=== PATIENT | male | born 1935 | race Caucasian/White ===

== ENCOUNTER → 2016-08-29 | Outpatient (CLI) | payer OTHER | LOC: BHFA 11:30 | PROVIDERS: ATTEND Internal Medicine Cardiovascular Disease | DX: I48.92 Unspecified atrial flutter (principal); I48.91 Unspecified atrial fibrillation ==

== ENCOUNTER 2016-08-30 07:09 | Day surgery (SDC) | payer OTHER ==
[2016-08-30] MEDS ORDERED: PROPOFOL 200 MG/20 ML VIAL IVP ONE (07:12)
[2016-08-30] MEDS ORDERED: NS 500 ML IV ONE (07:12)
[2016-08-30] MEDS ORDERED: fentaNYL 100 MCG/2 ML INJ IVP ONE (07:12)
[2016-08-30] MEDS ORDERED: MIDAZOLAM 2 MG/2 ML VIAL IVP ONE (07:12)
--- NOTE | 2016-08-30 07:34 | CPEKG ---
Heart Rate: 119 RR Interval: 504 P-R Interval: 164 QRSD Interval: 108 QT Interval: 372 QTC Interval: 524 P [place]: 0 QRS [place]: 73 T Wave [place]: 70 EKG Severity - ABNORMAL ECG - EKG Impression: PROBABLE ATRIAL FLUTTER EKG Impression: INCOMPLETE RIGHT BUNDLE BRANCH BLOCK EKG Impression: PROLONGED QT INTERVAL Electronically Signed By: Cuba Santos 30-Aug-2016 19:27:44
[2016-08-30 07:59] LABS: INR 2.55 (0.83-1.16); PROTIME(PATIENT) 27.7 SEC (12.0-15.0)
[2016-08-30 08:00] LABS: APTT 34.9 SEC (23.0-38.0)
[2016-08-30 08:11] LABS: ANION GAP 11 mEq/L (8-16); CALCIUM 8.7 mg/dL (8.5-10.4); CARBON DIOXIDE 25 mEq/l (22-31); CHLORIDE 101 mEq/L (97-110); CREATININE 0.9 mg/dL (0.7-1.3); GLOMERULAR FILTRATION RATE > 60; GLUCOSE 89 mg/dL (70-100); MAGNESIUM 1.9 mg/dL (1.6-2.3); POTASSIUM 4.3 mEq/L (3.5-5.2); SODIUM 137 mEq/L (134-144)
--- NOTE | 2016-08-30 08:31 | CPEKG ---
Heart Rate: 81 RR Interval: 741 P-R Interval: 164 QRSD Interval: 94 QT Interval: 392 QTC Interval: 455 P [place]: 78 QRS [place]: 54 T Wave [place]: 68 EKG Severity - NORMAL ECG - EKG Impression: SINUS RHYTHM Electronically Signed By: Cuba Santos 30-Aug-2016 19:28:07
--- NOTE | 2016-08-30 16:04 | EPPROC ---
Electrophysiology Procedure Note: Procedure: CV Indication: Symptomatic Atrial flutter from the LA Procedure: Pt sedated by anesthesia staff. Once sedated, pt underwent 200J of DCCV. Pt converted to sinus rhythm. Conclusion: Successful CV Patient Problems: Problems Problem Status Diagnosed A-fib Acute Chronic Disease Mgmt/Transitional Care Acute Febrile Acute Groin hematoma Acute Pneumonia Acute
== END 2016-08-30 09:49 | disposition home or self-care (01) ==
LOC: FCATH 07:09
PROVIDERS: ATTEND Internal Medicine Cardiovascular Disease
PROC: 5A2204Z Restoration of Cardiac Rhythm, Single (ICD-10-PCS; principal; 2016-08-30)
DX: I48.91 Unspecified atrial fibrillation (principal); I48.92 Unspecified atrial flutter; I10 Essential (primary) hypertension; E03.9 Hypothyroidism, unspecified; E78.00 Pure hypercholesterolemia, unspecified; Z95.1 Presence of aortocoronary bypass graft
CPT/HCPCS: J2704

== ENCOUNTER 2017-01-29 08:34 | Emergency (ER) | payer OTHER ==
[2017-01-29 08:44] VITALS: RESP 16
[2017-01-29] MEDS ORDERED: NS 1,000 ML IV ONE (09:11)
--- NOTE | 2017-01-29 09:14 | EDPHY ---
H & P Stated Complaint: near syncopal episode, Cardiac hx at dinner. asymptomatic today Time Seen by Provider: 01/29/17 09:02 HPI/ROS: CHIEF COMPLAINT: Pre syncope HISTORY OF PRESENT ILLNESS: The patient is a 81-year-old man with a history of 5 vessel bypass in 1965. He has not had any further interventions needed since that time after he became a Vegan. He does have a history of atrial fibrillation as well status post ablation 1 year ago on Coumadin. No pacemaker. He is currently asymptomatic but states that last night while eating dinner with friends he had a 3 second episode of presyncope. He states that while sitting down he suddenly felt faint and like his vision was closing in and that he had tingling in both of his hands. His symptoms resolved abruptly. He denies chest pain or palpitations or shortness of breath associated with episode. No seizure-like activity. No focal weakness or deficits or speech difficulty. REVIEW OF SYSTEMS: Constitutional: denies: chills, fever, recent illness, recent injury EENTM: denies: blurred vision, double vision, nose congestion Respiratory: denies: cough, shortness of breath Cardiac: See HPI Gastrointestinal/Abdominal: denies: abdominal pain, diarrhea, nausea, vomiting, blood streaked stools Genitourinary: denies: dysuria, frequency, hematuria, pain Musculoskeletal: denies: joint pain, muscle pain Skin: denies: lesions, rash, jaundice, bruising Neurological: denies: headache, numbness, paresthesia, tingling, dizziness, weakness Hematologic/Lymphatic: denies: blood clots, easy bleeding, easy bruising Immunologic/allergic: denies: HIV/AIDS, transplant EXAM: GENERAL: Well-appearing, well-nourished and in no acute distress. HEAD: Atraumatic, normocephalic. EYES: Pupils equal round and reactive to light, extraocular movements intact, sclera anicteric, conjunctiva are normal. ENT: TMs normal, nares patent, oropharynx clear without exudates. Moist mucous membranes. NECK: Normal range of motion, supple without lymphadenopathy or JVD. LUNGS: Breath sounds clear to auscultation bilaterally and equal. No wheezes rales or rhonchi. HEART: Regular rate and rhythm without murmurs, rubs or gallops. ABDOMEN: Soft, nontender, normoactive bowel sounds. No guarding, no rebound. No masses appreciated. BACK: No CVA tenderness, no spinal tenderness, step-offs or deformities EXTREMITIES: Normal range of motion, no pitting or edema. No clubbing or cyanosis. NEUROLOGICAL: Cranial nerves II through XII grossly intact. Normal speech, normal gait. 5/5 strength, normal movement in all extremities, normal sensation PSYCH: Normal mood, normal affect. SKIN: Warm, dry, normal turgor, no visible rashes or lesions. Source: Patient Exam Limitations: No limitations - Personal History Current Tetanus/Diphtheria Vaccine: Yes Current Tetanus Diphtheria and Acellular Pertussis (TDAP): Yes - Medical/Surgical History Hx Asthma: No Hx Chronic Respiratory Disease: No Hx Diabetes: No Hx Cardiac Disease: Yes Hx Renal Disease: No Hx Cirrhosis: No Hx Alcoholism: No Hx HIV/AIDS: No Hx Splenectomy or Spleen Trauma: No Other PMH: CABG x 4, Afib with ablation - Family History Significant Family History: No pertinent family hx - Social History Smoking Status: Never smoked Alcohol Use: Sober Drug Use: None Constitutional: Initial Vital Signs Temperature (C) 36.9 C 01/29/17 08:41 Heart Rate 62 01/29/17 08:41 Respiratory Rate 16 01/29/17 08:41 Blood Pressure 179/84 H 01/29/17 08:41 O2 Sat (%) 97 01/29/17 08:41 O2 Delivery Mode Room Air Allergies/Adverse Reactions: iodine Allergy (Verified 03/05/16 03:58) Penicillins Allergy (Verified 03/05/16 03:58) IV contrast dye Allergy (Uncoded 03/05/16 03:58) Home Medications: Medication Instructions Recorded Levothyroxine [Synthroid 50 mcg 50 mcg PO DAILY 01/19/14 (*)] Warfarin Sodium [Jantoven] 6 mg PO DAILY@1900 01/19/14 Metoprolol Tartrate [Lopressor 25 25 mg PO DAILY 05/03/14 mg (*)] Cholecalciferol Vit D3 [Vitamin D3 500 units PO DAILY 02/29/16 (*)] Cyanocobalamin [Vitamin B12 (*)] 1,000 mcg PO DAILY 02/29/16 ASPIRIN 81 mg PO DAILY 08/30/16 Saw [place] 160 mg PO DAILY 08/30/16 Medical Decision Making - Diagnostics EKG Interpretation: An EKG obtained and was read and documented in trace view. Please see trace view for full reading and report. Sinus rhythm, no acute ischemic changes A repeat EKG obtained and was read and documented in trace view. Please see trace view for full reading and report. Sinus rhythm with premature supraventricular beats displaying bigeminy ED Course/Re-evaluation: 10:15 a.m. the patient remains asymptomatic. His lab work is reassuring. His EKG is reassuring. He declines further workup or testing and is eager to go home. He will follow up with his genomics scientist Dr. Parmar for further testing. We discussed indications for returning to the emergency department. 10:30 a.m. on repeat EKG the patient this shown to have several supraventricular beats in a bigeminy pattern. He is otherwise asymptomatic. I have paged Cardiology group and will have him follow up in the clinic. 10:44 a.m. I spoke with Chiqui at [facility]. They will call the patient to set him up with a monitor. Differential Diagnosis: Partial list of the Differential diagnosis considered include but were not limited to; arrhythmia, dehydration, acute coronary disease and although unlikely based on the history and physical exam, I also considered seizure, TIA , infection. I discussed these differential diagnoses and the plan with the patient as well as the usual and expected course. The patient understands that the diagnosis is provisional and that in medicine we are not always correct and that further workup is often warranted. Usual and customary warnings were given. All of the patient's questions were answered. The patient was instructed to return to the emergency department should the symptoms at all worsen or return, otherwise to followup with the physician as we discussed. - Data Points Laboratory Results: Laboratory Results 01/29/17 09:25 01/29/17 09:25 Medications Given: Discontinued Medications Sodium Chloride (Ns) 1,000 mls @ 0 mls/hr IV ONCE ONE; Wide Open PRN Reason: Protocol Stop: 01/29/17 09:12 Last Admin: 01/29/17 09:27 Dose: 1,000 mls Departure - Departure Disposition: Home, Routine, Self-Care Clinical Impression: Pre-syncope Condition: Fair Instructions: Near Syncope (ED) Referrals: Ede Sheikh MD [Primary Care Provider] - As per Instructions Johnnie Parmar MD [Medical Doctor] - As per Instructions
[2017-01-29 09:32] LABS: % IMMATURE GRANULYOCYTES 0.3 % (0.0-1.1); ABSOLUTE IMMATURE GRANULOCYTES 0.02 10^3/uL (0.00-0.10); ADD DIFF? NO; ADD MORPH? NO; ADD SCAN? NO; ATYPICAL LYMPHOCYTE FLAG 30 (0-99); FRAGMENT RBC FLAG 0 (0-99); HEMATOCRIT 39.8 % (40.0-51.0); HEMOGLOBIN 13.4 g/dL (13.7-17.5); LEFT SHIFT FLG 10 (0-99); LIPEMIA HEMOLYSIS FLAG 80 (0-99); MEAN CELL HEMOGLOBIN 32.6 pg (27.9-34.1); MEAN CELL HEMOGLOBIN CONCENTR. 33.7 g/dL (32.4-36.7); MEAN CELL VOLUME 96.8 fL (81.5-99.8); MEAN PLATELET VOLUME 10.1 fL (8.7-11.7); PLATELET CLUMPS FLAG 0 (0-99); PLATELET COUNT 200 10^3/uL (150-400); RED BLOOD CELL COUNT 4.11 10^6/uL (4.40-6.38); RED CELL DISTRIBUTION WIDTH 12.1 % (11.5-15.2)
[2017-01-29 09:43] LABS: ANION GAP 8 mEq/L (8-16); CARBON DIOXIDE 27 mEq/l (22-31); CHLORIDE 101 mEq/L (97-110); GLOMERULAR FILTRATION RATE > 60; GLUCOSE 70 mg/dL (70-100); POTASSIUM 4.4 mEq/L (3.5-5.2); SODIUM 136 mEq/L (134-144)
[2017-01-29 09:54] LABS: INR 2.94 (0.83-1.16)
[2017-01-29 09:55] LABS: APTT 33.8 SEC (23.0-38.0); TROPONIN I < 0.012 ng/mL (0-0.034)
--- NOTE | 2017-01-29 10:23 | CPEKG ---
Heart Rate: 51 RR Interval: 1176 P-R Interval: 176 QRSD Interval: 92 QT Interval: 424 QTC Interval: 391 P [place]: 56 QRS [place]: 66 T Wave [place]: 78 EKG Severity - ABNORMAL ECG - EKG Impression: SINUS RHYTHM EKG Impression: SUPRAVENTRICULAR BIGEMINY Electronically Signed By: Fritz Schumacher 29-Jan-2017 10:28:30
[2017-01-29 10:54] VITALS: O2SAT 98
[2017-01-29 10:56] VITALS: BP 160/72; PULSE 62; TEMP 97.9
== END 2017-01-29 10:56 | disposition home or self-care (01) ==
DX: R55 Syncope and collapse (principal); E86.9 Volume depletion, unspecified; Z79.01 Long term (current) use of anticoagulants; Z79.82 Long term (current) use of aspirin; Z95.1 Presence of aortocoronary bypass graft

== ENCOUNTER → 2017-01-31 | Outpatient (CLI) | payer OTHER | LOC: BHFA 13:30 | PROVIDERS: ATTEND Internal Medicine Interventional Cardiology | DX: R55 Syncope and collapse (principal) ==

== ENCOUNTER → 2017-03-25 | Outpatient (CLI) | payer OTHER | LOC: BHFA 09:15 | PROVIDERS: ATTEND Internal Medicine Cardiovascular Disease | DX: I25.10 Atherosclerotic heart disease of native coronary artery without angina pectoris (principal); R55 Syncope and collapse ==

== ENCOUNTER → 2017-07-12 | Outpatient (CLI) | payer OTHER | LOC: FIMAGING 13:38 | PROVIDERS: ATTEND Internal Medicine | DX: R91.1 Solitary pulmonary nodule (principal) ==

== ENCOUNTER 2017-07-24 11:03 | Day surgery (SDC) | payer OTHER ==
[2017-07-24] MEDS ORDERED: fentaNYL 100 MCG/2 ML INJ IVP ONE (11:09)
[2017-07-24] MEDS ORDERED: MIDAZOLAM 2 MG/2 ML VIAL IVP ONE (11:09)
[2017-07-24] MEDS ORDERED: NS 500 ML IV ONE (11:09)
[2017-07-24] MEDS ORDERED: ATROPINE SULFATE 1 MG/10 ML SYR IVP ONE (11:09)
--- NOTE | 2017-07-24 11:22 | CPEKG ---
Heart Rate: 116 RR Interval: 517 P-R Interval: 74 QRSD Interval: 90 QT Interval: 388 QTC Interval: 540 P [place]: 0 QRS [place]: 88 T Wave [place]: 83 EKG Severity - ABNORMAL ECG - EKG Impression: LIKELY ATRIAL TACHYCARDIA EKG Impression: BORDERLINE RIGHT AXIS DEVIATION EKG Impression: BORDERLINE ST DEPRESSION, DIFFUSE LEADS EKG Impression: PROLONGED QT INTERVAL EKG Impression: COMPARED WITH 01/29/2017, ATRIAL TACHYCARDIA NOW PRESENT. PROLONGED QT INTERVAL EKG Impression: NOW PRESENT. Electronically Signed By: Aida Bess 24-Jul-2017 15:42:37
[2017-07-24 11:45] LABS: INR 1.77 (0.83-1.16); PROTIME(PATIENT) 20.7 SEC (12.0-15.0)
[2017-07-24 11:46] LABS: APTT 31.6 SEC (23.0-38.0)
[2017-07-24 11:50] LABS: ANION GAP 11 mEq/L (8-16); CALCIUM 8.9 mg/dL (8.5-10.4); CARBON DIOXIDE 25 mEq/l (22-31); CHLORIDE 102 mEq/L (97-110); CREATININE 0.9 mg/dL (0.7-1.3); GLOMERULAR FILTRATION RATE > 60; GLUCOSE 87 mg/dL (70-100); MAGNESIUM 1.9 mg/dL (1.6-2.3); POTASSIUM 4.5 mEq/L (3.5-5.2); SODIUM 138 mEq/L (134-144)
--- NOTE | 2017-07-24 12:13 | PDANEPAE ---
ANE History of Present Illness a flutter ANE Past Medical History - Cardiovascular History Hx Coronary Artery / Peripheral Vascular Disease: Yes - Pulmonary History Hx Oxygen in Use at Home: No Hx Sleep Apnea: No - Endocrine History Hx Diabetes: No - Chronic Pain History Chronic Pain: No ANE Review of Systems Review of Systems: ANE Patient History - Allergies Allergies/Adverse Reactions: iodine Allergy (Verified 03/05/16 03:58) Penicillins Allergy (Verified 03/05/16 03:58) IV contrast dye Allergy (Uncoded 03/05/16 03:58) - Home Medications Home Medications: Levothyroxine [Synthroid 50 mcg (*)] 50 mcg PO DAILY 01/19/14 [Last Taken ] Warfarin Sodium [Jantoven] 6 mg PO DAILY@1900 01/19/14 [Last Taken 07/23/17] Metoprolol Tartrate [Lopressor 25 mg (*)] 25 mg PO BID 05/03/14 [Last Taken ] Cholecalciferol Vit D3 [Vitamin D3 (*)] 500 units PO DAILY 02/29/16 [Last Taken 07/23/17] Cyanocobalamin [Vitamin B12 (*)] 500 mcg PO DAILY 02/29/16 [Last Taken 07/23/17] ASPIRIN 81 mg PO DAILY 08/30/16 [Last Taken 07/24/17] Saw [place] 160 mg PO DAILY 08/30/16 [Last Taken 07/23/17] Lipitor 10 mg (*) 5 mg PO DAILY 07/24/17 [Last Taken 07/23/17] - Smoking Hx Smoking Status: Never smoked ANE Labs/Vital Signs - Labs Result Diagrams: 07/24/17 11:28 - Vital Signs Height: 178 cm Weight: 65.3 kg ANE Physical Exam - Airway Neck exam: FROM Mallampati Score: Class 2 Mouth exam: normal dental/mouth exam - Pulmonary Pulmonary: no respiratory distress - Cardiovascular Cardiovascular: regular rate and rhythym - ASA Status ASA Status: III ANE Anesthesia Plan Total IV Anesthesia: Yes
[2017-07-24] MEDS ORDERED: PROPOFOL 200 MG/20 ML VIAL ONE ×2 (12:14→12:29)
--- NOTE | 2017-07-24 12:20 | PDHPUP ---
History & Physical Update H&P update statement: This history and physical update is based on an assessment of the patient which was completed after admission or registration (within 24 hours), but prior to the surgery/procedure. H&P update: H&P reviewed & patient examined, no change in patient's condition since H&P completed
--- NOTE | 2017-07-24 12:36 | EPPROC ---
Electrophysiology Procedure Note: Procedure: CV Indication: Symptomatic atrial flutter Procedure: SHANE performed under GA. LA closure performed previously. No LA clot. Synchronized DCCV performed with 200J. Pt successfuly converted to SR. Conclusion: Successful CV Patient Problems: Problems Problem Status Onset A-fib Acute Chronic Disease Mgmt/Transitional Care Acute Febrile Acute Groin hematoma Acute Pneumonia Acute
--- NOTE | 2017-07-24 12:38 | CPEKG ---
Heart Rate: 73 RR Interval: 822 P-R Interval: 172 QRSD Interval: 96 QT Interval: 404 QTC Interval: 446 P [place]: 82 QRS [place]: 56 T Wave [place]: 58 EKG Severity - NORMAL ECG - EKG Impression: SINUS RHYTHM EKG Impression: COMPARED WITH 07/24/2017 AT 11:20 A.M., SINUS RHYTHM IS NOW PRESENT. QT SHORTER Electronically Signed By: Aida Bess 24-Jul-2017 15:41:27
--- NOTE | 2017-07-24 13:31 | POSTANESTH ---
Post Anesthetic Evaluation Cardiovascular Status: Normal, Stable Respiratory Status: Normal, Stable Level of Consciousness/Mental Status: Can Participate in Eval Pain Control: Adequate, Prn Tx Ordered Nausea/Vomiting Control: Adequate, Prn Tx Ordered Complications Possibly Related to Anesthesia: None Noted
== END 2017-07-24 13:50 | disposition home or self-care (01) ==
LOC: FCATH 11:03
PROVIDERS: ATTEND Internal Medicine Cardiovascular Disease
DX: I48.91 Unspecified atrial fibrillation (principal); I48.92 Unspecified atrial flutter; Z79.01 Long term (current) use of anticoagulants
CPT/HCPCS: J0461; J2704

== ENCOUNTER 2017-08-26 18:41 | Emergency (ER) | payer OTHER ==
[2017-08-26 18:47] VITALS: O2SAT 96
[2017-08-26] MEDS ORDERED: LET GEL TOPICAL 1 EA SYR TP ONE (20:11)
[2017-08-26] MEDS ORDERED: OXYMETAZOLINE 30 ML NASAL SPRAY EACHNARE ONE (20:11)
--- NOTE | 2017-08-26 20:22 | EDPHY ---
H & P Smoking Status: Never smoked Time Seen by Provider: 08/26/17 20:02 HPI/ROS: CHIEF COMPLAINT: Epistaxis, warfarin HISTORY OF PRESENT ILLNESS: 82-year-old male history of atrial fibrillation complaining of recurrent epistaxis since 4:00 p.m. today. No dizziness. No digital trauma. No headache. No chest pain. PRIMARY CARE PROVIDER: REVIEW OF SYSTEMS: A ten point review of systems was performed and is negative with the exception of the items mentioned in the HPI PHYSICAL EXAM (Prior to examination, patient consented to physical exam, hands were washed and my usual and customary physical exam procedures followed) 1) GENERAL: Well-developed, well-nourished, alert and oriented. Appears to be in no acute distress. 2) HEAD: Normocephalic 3) HEENT: sclera anicteric. There is an area of active bleeding left Kiesselbach's plexus. No evidence of posterior bleed or right-sided bleeding. 4) LUNGS: Breathing comfortably. (Vanessa Miles) Constitutional: Initial Vital Signs Heart Rate 110 H 08/26/17 18:43 Respiratory Rate 18 08/26/17 18:43 Blood Pressure 159/103 H 08/26/17 18:43 O2 Sat (%) 96 08/26/17 18:43 O2 Delivery Mode Room Air Allergies/Adverse Reactions: iodine Allergy (Verified 08/26/17 18:42) Penicillins Allergy (Verified 08/26/17 18:42) IV contrast dye Allergy (Uncoded 03/05/16 03:58) Home Medications: Medication Instructions Recorded Levothyroxine [Synthroid 50 mcg 50 mcg PO DAILY 01/19/14 (*)] Warfarin Sodium [Jantoven] 6 mg PO DAILY@1900 01/19/14 Metoprolol Tartrate [Lopressor 25 25 mg PO BID 05/03/14 mg (*)] ASPIRIN 81 mg PO DAILY 08/30/16 Lipitor 10 mg (*) 5 mg PO DAILY 07/24/17 MDM/Departure - [facility] Procedures: Procedure: Epistaxis control. Indication: nosebleed not controlled by direct pressure. Risks, benefits, alternatives discussed with patient and consent obtained. The left nares was anesthetized with LAT. The anterior epistaxis was identified. The patient was treated with silver nitrate cautery. Following the procedure the patient was re-examined and the bleeding was well controlled. The patient tolerated the procedure well. The procedure was performed by myself. At discharge the patient's nose is hemostatic. (Vanessa Miles) Medications Given: Discontinued Medications Oxymetazoline HCl (Afrin Nasal [place]) 2 sprays EACHNARE EDNOW ONE Stop: 08/26/17 20:12 Last Admin: 08/26/17 21:54 Dose: 2 sprays Silver Nitrate/Potassium Nitrate (Silver Nitrate Applicator) 1 each TP EDNOW ONE Stop: 08/26/17 21:22 Last Admin: 08/26/17 21:54 Dose: 1 each Tetracaine/Epinephrine/Lidocaine (Let Gel Topical) 1 ea TP EDNOW ONE Stop: 08/26/17 20:12 Last Admin: 08/26/17 21:54 Dose: 1 ea ED Course/Re-evaluation: Patient's INR is elevated recommend he skip his next dose of Coumadin. (Vanessa Miles) The patient was evaluated and managed by the Physician Recreation Engineer.My co- signature indicates that I have reviewed this chart and I agree with the findings and plan of care as documented. I am the secondary supervising physician. (Fabiola Lopez) - Depart Disposition: Home, Routine, Self-Care Clinical Impression: Left-sided epistaxis Condition: Good Instructions: Nosebleed (ED) Additional Instructions: If you develop further episodes of nosebleed, place direct pressure for 20 minutes. If the bleeding continues, seek medical attention. Referrals: Radha Mattson MD [Medical Doctor] - 2-3 days, call for appt.
[2017-08-26 20:31] LABS: PLATELET COUNT 178 10^3/uL (150-400)
[2017-08-26 20:44] LABS: INR 3.31 (0.83-1.16); PROTIME(PATIENT) 33.4 SEC (12.0-15.0)
[2017-08-26] MEDS ORDERED: SILVER NITRATE APPLICATOR 1 APPL TP ONE (21:21)
[2017-08-26 22:09] VITALS: BP 141/96; PULSE 114; RESP 18; TEMP 98.4
== END 2017-08-26 22:09 | disposition home or self-care (01) ==
PROC: 3E09XTZ Introduction of Destructive Agent into Nose, External Approach (ICD-10-PCS; principal; 2017-08-26)
DX: R04.0 Epistaxis (principal); Z79.01 Long term (current) use of anticoagulants; Z79.82 Long term (current) use of aspirin

== ENCOUNTER 2017-08-27 00:47 | Emergency (ER) | payer OTHER ==
[2017-08-27] MEDS ORDERED: SILVER NITRATE APPLICATOR 1 APPL TP ONE (00:59)
--- NOTE | 2017-08-27 01:10 | EDPHY ---
H & P Stated Complaint: nose bleed HPI/ROS: HPI CHIEF COMPLAINT: Epistaxis, seen earlier on Coumadin HISTORY OF PRESENT ILLNESS: Patient 82-year-old male, very pleasant, seen here earlier in the evening for epistaxis. Now presents back from ongoing bleeding. Patient states that he had good hemostasis earlier however shortly after arriving home his nose started bleeding again. Was unable to get the stops return to the emergency room. Upon arrival to the emergency room is hemodynamically stable no acute distress. He has a very light trickle out of the left anterior Nare. Past Medical History:CABG Past Surgical History:CABG Social History: Denies drugs alcohol tobacco Family History: Noncontributory ROS REVIEW OF SYSTEMS: A comprehensive 10 point review of systems is otherwise negative aside from elements mentioned in the history of present illness. Exam Constitutional appears well nontoxic triage nursing summary reviewed, vital signs reviewed, awake/alert. Eyes normal conjunctivae and sclera, EOMI, PERRLA. HENT left [place] anterior aspect shows light trickle of bright red blood no pulsatile lesion visualized, blood is located on the anterior left Nare the bottom aspect. Right Nare clean moist mucus membranes, no epistaxis, neck supple/ no meningismus, no raccoon eyes. Respiratory clear to auscultation bilaterally, normal breath sounds, no respiratory distress, no wheezing. Cardiovascular rate normal, regular rhythm, no murmur, no edema, distal pulses normal. Gastrointestinal soft, non-tender, no rebound, no guarding, normal bowel sounds, no distension, no pulsatile mass. Genitourinary no CVA tenderness. Musculoskeletal no midline vertebral tenderness, full range of motion, no calf swelling, no tenderness of extremities, no meningismus, good pulses, neurovascularly intact. Skin pink, warm, & dry, no rash, skin atraumatic. Neurologic awake, alert and oriented x 3, AAOx3, moves all 4 extremities equally, motor intact, sensory intact, CN II-XII intact, normal cerebellar, normal vision, normal speech. Psychiatric normal mood/affect. Heme/Lymph/Immune no lymphadenopathy. Differential Diagnosis: Includes but is not limited to in a particular order acute epistaxis on Coumadin, anterior nose bleed, posterior nosebleed Medical Decision Making: Plan for this patient I will use of a nitrate sticks to cauterize the anterior left nose bleed. He will then have a nasal clamp for 20 min. And will re-evaluate him. Re-evaluation: Nosebleed procedure: Silver Nitrate Sticks were applied in the left anterior [place]. I held direct pressure with that over the area of bleeding. He had good cauterization. He tolerated this very well. After the cauterization was performed I do not see any further bleeding. The nasal clamp was placed and will be in home placed for 20 min and then re-evaluated. 0202: Patient's epistaxis has resolved he has remained he meant dynamically stable as well as no further bleeding. Nasal clamp was placed and then removed. He has been without his nasal clamp for over 20 min and is not any further bleeding. Good hemostasis with cauterization. Recommend ENT follow- up. Return precautions discussed Source: Patient - Personal History Current Tetanus/Diphtheria Vaccine: Unsure Current Tetanus Diphtheria and Acellular Pertussis (TDAP): Unsure - Medical/Surgical History Hx Asthma: No Hx Chronic Respiratory Disease: No Hx Diabetes: No Hx Cardiac Disease: Yes Hx Renal Disease: No Hx Cirrhosis: No Hx Alcoholism: No Hx HIV/AIDS: No Hx Splenectomy or Spleen Trauma: No Other PMH: CABG x 4, Afib with ablation - Social History Smoking Status: Never smoked Constitutional: Initial Vital Signs Temperature (C) 36.3 C 08/27/17 00:49 Heart Rate 110 H 08/27/17 00:49 Respiratory Rate 16 08/27/17 00:49 Blood Pressure 159/102 H 08/27/17 00:49 O2 Sat (%) 97 08/27/17 00:49 O2 Delivery Mode Room Air Allergies/Adverse Reactions: iodine Allergy (Verified 08/26/17 18:42) Penicillins Allergy (Verified 08/26/17 18:42) IV contrast dye Allergy (Uncoded 03/05/16 03:58) Home Medications: Medication Instructions Recorded Levothyroxine [Synthroid 50 mcg 50 mcg PO DAILY 01/19/14 (*)] Warfarin Sodium [Jantoven] 6 mg PO DAILY@1900 01/19/14 Metoprolol Tartrate [Lopressor 25 25 mg PO BID 05/03/14 mg (*)] ASPIRIN 81 mg PO DAILY 08/30/16 Lipitor 10 mg (*) 5 mg PO DAILY 07/24/17 Departure - Departure Disposition: Home, Routine, Self-Care Clinical Impression: Epistaxis Condition: Good Instructions: Nosebleed (ED) Additional Instructions: 1. Return emergency room if you have recurrent of a nose bleed. 2. If you know starts bleed apply direct pressure for 20 min tilt your head forward. If he cannot get it to stop return emergency room. 3. Follow up with ENT. 4. Hold your Coumadin today. You may resume this tomorrow. Referrals: Esperanza Bass MD [Primary Care Provider] - As per Instructions Radha Mattson MD [Medical Doctor] - As per Instructions
[2017-08-27 01:20] VITALS: RESP 18
[2017-08-27 02:36] VITALS: TEMP 97.9
[2017-08-27 04:19] VITALS: BP 110/62; PULSE 82; O2SAT 94
== END 2017-08-27 04:05 | disposition home or self-care (01) ==
PROC: 3E09XTZ Introduction of Destructive Agent into Nose, External Approach (ICD-10-PCS; principal; 2017-08-27)
DX: R04.0 Epistaxis (principal); Z79.01 Long term (current) use of anticoagulants; Z79.82 Long term (current) use of aspirin

== ENCOUNTER 2017-09-05 08:15 | Day surgery (SDC) | payer OTHER ==
[2017-09-05] MEDS ORDERED: ATROPINE SULFATE 1 MG/10 ML SYR IVP ONE (08:27)
[2017-09-05] MEDS ORDERED: BENZOCAINE UNIT DOSE SPRAY HURRICAINE MM ONE (08:27)
[2017-09-05] MEDS ORDERED: MIDAZOLAM 2 MG/2 ML VIAL IVP ONE (08:27)
[2017-09-05] MEDS ORDERED: fentaNYL 100 MCG/2 ML INJ IVP ONE (08:27)
[2017-09-05] MEDS ORDERED: NS 500 ML IV ONE (08:27)
--- NOTE | 2017-09-05 09:07 | CPEKG ---
Heart Rate: 115 RR Interval: 522 P-R Interval: 148 QRSD Interval: 90 QT Interval: 348 QTC Interval: 482 P [place]: 228 QRS [place]: 83 T Wave [place]: 56 EKG Severity - ABNORMAL ECG - EKG Impression: SINUS OR ECTOPIC ATRIAL TACHYCARDIA EKG Impression: BORDERLINE RIGHT AXIS DEVIATION EKG Impression: ST DEPRESSION, CONSIDER ISCHEMIA, INF LEADS EKG Impression: BORDERLINE PROLONGED QT INTERVAL Electronically Signed By: Virgil Mena 05-Sep-2017 13:09:17
[2017-09-05] MEDS ORDERED: LIDOCAINE 2% 5 ML SDV ONE (09:53)
--- NOTE | 2017-09-05 09:53 | PDANEPAE ---
ANE Past Medical History - Cardiovascular History Hx Coronary Artery / Peripheral Vascular Disease: Yes - Pulmonary History Hx Oxygen in Use at Home: No Hx Sleep Apnea: No - Endocrine History Hx Diabetes: No - Chronic Pain History Chronic Pain: No ANE Review of Systems Review of Systems: ANE Patient History - Allergies Allergies/Adverse Reactions: iodine Allergy (Verified 08/26/17 18:42) Penicillins Allergy (Verified 08/26/17 18:42) IV contrast dye Allergy (Uncoded 03/05/16 03:58) - Home Medications Home Medications: Levothyroxine [Synthroid 50 mcg (*)] 50 mcg PO DAILY 01/19/14 [Last Taken ] Warfarin Sodium [Jantoven] 6 mg PO DAILY@1900 01/19/14 [Last Taken 09/04/17] Metoprolol Tartrate [Lopressor 25 mg (*)] 25 mg PO BID 05/03/14 [Last Taken 08/22] ASPIRIN 81 mg PO DAILY 08/30/16 [Last Taken 09/05/17] - Smoking Hx Smoking Status: Never smoked ANE Labs/Vital Signs - Labs Result Diagrams: 09/05/17 09:00 - Vital Signs Height: 177.8 cm Weight: 65.8 kg ANE Physical Exam - Airway Neck exam: FROM Mallampati Score: Class 2 Mouth exam: normal dental/mouth exam - Pulmonary Pulmonary: no respiratory distress - Cardiovascular Cardiovascular: regular rate and rhythym - ASA Status ASA Status: II ANE Anesthesia Plan Total IV Anesthesia: Yes
[2017-09-05] MEDS ORDERED: PROPOFOL 200 MG/20 ML VIAL ONE (09:54)
--- NOTE | 2017-09-05 10:00 | EPPROC ---
Electrophysiology Procedure Note: Procedure: DCCV Indication: Symptomatic AFl Procedure: Pt sedated by anesthesia staff. Once sedated, 200J of synchronized DCCV given. pt converted to SR Conclusion: Successful CV Patient Problems: Problems Problem Status Onset A-fib Acute Chronic Disease Mgmt/Transitional Care Acute Febrile Acute Groin hematoma Acute Pneumonia Acute
--- NOTE | 2017-09-05 10:12 | CPEKG ---
Heart Rate: 72 RR Interval: 833 P-R Interval: 168 QRSD Interval: 92 QT Interval: 404 QTC Interval: 443 P [place]: 82 QRS [place]: 59 T Wave [place]: 56 EKG Severity - NORMAL ECG - EKG Impression: SINUS RHYTHM Electronically Signed By: Virgil Mena 05-Sep-2017 13:09:03
== END 2017-09-05 11:47 | disposition home or self-care (01) ==
LOC: FCATH 08:15
PROVIDERS: ATTEND Internal Medicine Cardiovascular Disease
PROC: 5A2204Z Restoration of Cardiac Rhythm, Single (ICD-10-PCS; principal; 2017-09-05)
DX: I48.91 Unspecified atrial fibrillation (principal); I48.92 Unspecified atrial flutter; I25.810 Atherosclerosis of coronary artery bypass graft(s) without angina pectoris; I34.0 Nonrheumatic mitral (valve) insufficiency; E78.5 Hyperlipidemia, unspecified; N40.0 Benign prostatic hyperplasia without lower urinary tract symptoms; I10 Essential (primary) hypertension; E03.9 Hypothyroidism, unspecified; Z79.82 Long term (current) use of aspirin; Z82.49 Family history of ischemic heart disease and other diseases of the circulatory system; Z95.1 Presence of aortocoronary bypass graft; Z88.0 Allergy status to penicillin
CPT/HCPCS: J0461; J2704

== ENCOUNTER 2018-08-19 08:43 | Day surgery (SDC) | payer OTHER ==
[2018-08-19] MEDS ORDERED: ATROPINE SULFATE 1 MG/10 ML SYR IVP ONE (08:54)
[2018-08-19] MEDS ORDERED: MIDAZOLAM 2 MG/2 ML VIAL IVP ONE (08:54)
[2018-08-19] MEDS ORDERED: NS 500 ML IV ONE (08:54)
[2018-08-19] MEDS ORDERED: fentaNYL 100 MCG/2 ML INJ IVP ONE (08:54)
[2018-08-19 10:26] LABS: INR 2.13 (0.83-1.16); PROTIME(PATIENT) 23.9 SEC (12.0-15.0)
--- NOTE | 2018-08-19 11:05 | CPEKG ---
Test Reason : OPEN Blood Pressure : / mmHG Vent. Rate : 109 BPM Atrial Rate : 109 BPM P-R Int : 194 ms QRS Dur : 105 ms QT Int : 330 ms P-R-T Axes : 126 096 047 degrees QTc Int : 445 ms Sinus tachycardia Confirmed by Desmond Mcdonnell ([id number]) on 08/19/2018 11:05:19 AM Referred By: Confirmed By:Desmond Mcdonnell
[2018-08-19] MEDS ORDERED: PROPOFOL 200 MG/20 ML VIAL ONE (11:19)
--- NOTE | 2018-08-19 11:25 | PDANEPAE ---
ANE Past Medical History - Cardiovascular History Hx Coronary Artery / Peripheral Vascular Disease: Yes - Pulmonary History Hx COPD: No Hx Oxygen in Use at Home: No Hx Sleep Apnea: No - Endocrine History Hx Diabetes: No - Chronic Pain History Chronic Pain: No ANE Review of Systems Review of Systems: ANE Patient History - Allergies Allergies/Adverse Reactions: iodine Allergy (Verified 08/26/17 18:42) Penicillins Allergy (Verified 08/26/17 18:42) IV contrast dye Allergy (Uncoded 03/05/16 03:58) - Home Medications Home medications: home medication list seen and reviewed Home Medications: Levothyroxine [Synthroid 50 mcg (*)] 50 mcg PO DAILY 01/19/14 [Last Taken 08:00] Warfarin Sodium [Jantoven] 6 mg PO DAILY@1900 01/19/14 [Last Taken 08/18/18 18: 00] Metoprolol Tartrate [Lopressor 25 mg (*)] 25 mg PO BID 05/03/14 [Last Taken ] Atorvastatin Calcium 20 mg PO DAILY 08/19/18 [Last Taken 08/18/18 19:00] Cyanocobalamin (Vitamin B-12) [Vitamin B-12] 100 mcg PO DAILY 08/19/18 [Last Taken 08/18/18] Lisinopril 2.5 mg PO DAILY 08/19/18 [Last Taken 08/18/18] Nitrostat 0.4 mg (*) 0.4 mg SUBMUCOSAL PRN PRN 08/19/18 [Last Taken Unknown] Saw [place] Ext 160 mg Cap 160 mg PO DAILY 08/19/18 [Last Taken 08/18/18] Vitamin D3 1,000 mg PO DAILY 08/19/18 [Last Taken 08/18/18] - NPO status NPO Status: no food or drink >8 hours - Anes Hx Anes Hx: no prior problems - Smoking Hx Smoking Status: Never smoked ANE Labs/Vital Signs - Labs Result Diagrams: 08/19/18 10:10 - Vital Signs Height: 175.26 cm Weight: 63.503 kg ANE Physical Exam - Airway Neck exam: FROM Mallampati Score: Class 2 Mouth exam: normal dental/mouth exam - Pulmonary Pulmonary: no respiratory distress, no rales or rhonchi, clear to auscultation - Cardiovascular Cardiovascular: no murmur, rub, or gallop, tachycardia - ASA Status ASA Status: III ANE Anesthesia Plan Anesthesia Plan: GA with mask
[2018-08-19] MEDS ORDERED: NALOXONE HCL 0.4 MG/ML INJ IVP PRN (11:35)
[2018-08-19] MEDS ORDERED: fentaNYL 100 MCG/2 ML INJ IVP PRN (11:40)
[2018-08-19] MEDS ORDERED: NS 500 ML IV PRN (11:40)
[2018-08-19] MEDS ORDERED: ONDANSETRON 4 MG/2 ML VIAL IVP PRN (11:40)
--- NOTE | 2018-08-19 11:41 | POSTANESTH ---
Post Anesthetic Evaluation Cardiovascular Status: Normal, Stable Respiratory Status: Normal, Stable, Similar to Pre-op Cond. Level of Consciousness/Mental Status: Can Participate in Eval, Moderately Sleepy Pain Control: Adequate, Prn Tx Ordered Nausea/Vomiting Control: Adequate, Prn Tx Ordered Complications Possibly Related to Anesthesia: None Noted
--- NOTE | 2018-08-19 11:58 | PDTEE1 ---
[facility]ANE Cardioversion Procedure Procedure: electrical cardioversion Indications: other (atrial tachycardia) Procedural Details: Pads were placed in anterior-posterior position. Synchronized cardioversion attempt #1: other (70j) Results: normal sinus rhythm Conclusions: successful cardioversion Patient Problems: Problems Problem Status Onset Pneumonia Acute Febrile Acute A-fib Acute Chronic Disease Mgmt/Transitional Care Acute Groin hematoma Acute
--- NOTE | 2018-08-19 15:55 | CPEKG ---
Test Reason : OPEN Blood Pressure : / mmHG Vent. Rate : 073 BPM Atrial Rate : 073 BPM P-R Int : 161 ms QRS Dur : 106 ms QT Int : 411 ms P-R-T Axes : 082 046 062 degrees QTc Int : 453 ms Sinus rhythm Confirmed by Desmond Mcdonnell ([id number]) on 08/19/2018 3:55:17 PM Referred By: Confirmed By:Desmond Mcdonnell
== END 2018-08-19 14:00 | disposition home or self-care (01) ==
LOC: FCATH 08:43
PROVIDERS: ATTEND Internal Medicine Interventional Cardiology
PROC: 5A2204Z Restoration of Cardiac Rhythm, Single (ICD-10-PCS; principal; 2018-08-19)
DX: I47.1 Supraventricular tachycardia (principal); I25.10 Atherosclerotic heart disease of native coronary artery without angina pectoris; E78.5 Hyperlipidemia, unspecified; Z95.1 Presence of aortocoronary bypass graft; Z79.01 Long term (current) use of anticoagulants
CPT/HCPCS: J2704

== ENCOUNTER 2018-09-23 12:40 | Emergency (ER) | payer OTHER ==
--- NOTE | 2018-09-23 13:33 | EDPHY ---
H & P Stated Complaint: Mech fall, hit right forehead - on coumadin Time Seen by Provider: 09/23/18 13:11 HPI/ROS: CHIEF COMPLAINT: Head injury HISTORY OF PRESENT ILLNESS: 83-year-old male with atrial fibrillation on Coumadin presents after a head injury. He tripped and fell at the gym this morning. He struck his right periorbital area on the floor. He did not lose consciousness and was not amnestic to the event. No MARIEE. He went to urgent care and the wound was cleansed. Referred to the emergency department for CT head. He denies headache, neck pain or other injuries. Tetanus UTD. REVIEW OF SYSTEMS: complete 10 point ROS negative except as noted in the HPI - Personal History Current Tetanus/Diphtheria Vaccine: Yes Current Tetanus Diphtheria and Acellular Pertussis (TDAP): Yes - Medical/Surgical History Hx Asthma: No Hx Chronic Respiratory Disease: No Hx Diabetes: No Hx Cardiac Disease: Yes Hx Renal Disease: No Hx Cirrhosis: No Hx Alcoholism: No Hx HIV/AIDS: No Hx Splenectomy or Spleen Trauma: No Other PMH: CABG x 4, Afib with ablation - Social History Smoking Status: Never smoked Alcohol Use: Sober Drug Use: None - Physical Exam Exam: General Appearance: Alert, pleasant and smiling Head: Right periorbital area--abrasion and ecchymosis over lateral brow area Eyes: No conjunctival erythema, PERRLA, EOMI ENT, Mouth: No hemotympanum, no oral trauma, no bony tenderness Neck: Nontender, full range of motion without pain Respiratory: No chest wall tenderness, lungs clear bilaterally Cardiovascular: Regular rate and rhythm Abdomen: Abdomen is soft and nontender Skin: As above Back: No midline T/L/S tenderness Extremities: Pelvis is stable and nontender; no extremity tenderness or deformity, range of motion without pain Neurological: A&Ox3, normal motor function, normal sensory exam, cranial nerves intact, normal gait Psychiatric: Mood and affect normal Constitutional: Initial Vital Signs Temperature (C) 37 C 09/23/18 12:43 Heart Rate 99 09/23/18 12:43 Respiratory Rate 16 09/23/18 12:43 Blood Pressure 190/124 H 09/23/18 12:43 O2 Sat (%) 97 09/23/18 12:43 O2 Delivery Mode Room Air Allergies/Adverse Reactions: iodine Allergy (Verified 08/26/17 18:42) Penicillins Allergy (Verified 08/26/17 18:42) IV contrast dye Allergy (Uncoded 03/05/16 03:58) Home Medications: Medication Instructions Recorded Levothyroxine [Synthroid 50 mcg 50 mcg PO DAILY 01/19/14 (*)] Warfarin Sodium [Jantoven] 6 mg PO DAILY@1900 01/19/14 Metoprolol Tartrate [Lopressor 25 25 mg PO BID 05/03/14 mg (*)] Atorvastatin Calcium 20 mg PO DAILY 08/19/18 Cyanocobalamin (Vitamin B-12) 100 mcg PO DAILY 08/19/18 [Vitamin B-12] Lisinopril 2.5 mg PO DAILY 08/19/18 Nitrostat 0.4 mg (*) 0.4 mg SUBMUCOSAL PRN PRN 08/19/18 Saw [place] Ext 160 mg Cap 160 mg PO DAILY 08/19/18 Vitamin D3 1,000 mg PO DAILY 08/19/18 Medical Decision Making - Diagnostics Imaging Results: CT head per Dr. Watkins: NAD Imaging: Discussed imaging studies w/ life science technician Radiologist ED Course/Re-evaluation: This pt presents after a mechanical fall with a minor CHI. No MARIEE and neuro exam normal. CT head ordered d/t anticoagulation and advanced age. CT negative , d/w pt. CHI precautions given. No other injuries present. Differential Diagnosis: ICH, skull fx, facial fx, ocular injury, cspine injury Departure - Departure Disposition: Home, Routine, Self-Care Clinical Impression: Head injury Qualifiers: Encounter type: initial encounter Qualified Code(s): S09.90XA - Unspecified injury of head, initial encounter Condition: Good Instructions: Head Injury (ED) Additional Instructions: Your head CT scan is normal today. Return for persistent headache, vomiting, abnormal behavior, any concerns. Referrals: Esperanza Bass MD [Primary Care Provider] - As per Instructions
[2018-09-23 13:59] LABS: INR 2.95 (0.83-1.16); PROTIME(PATIENT) 30.6 SEC (12.0-15.0)
[2018-09-23 14:49] VITALS: BP 129/81
== END 2018-09-23 14:49 | disposition home or self-care (01) ==
DX: S09.90XA Unspecified injury of head, initial encounter (principal); I48.91 Unspecified atrial fibrillation; W01.0XXA Fall on same level from slipping, tripping and stumbling without subsequent striking against object, initial encounter; Y92.39 Other specified sports and athletic area as the place of occurrence of the external cause; Y99.9 Unspecified external cause status; Y93.9 Activity, unspecified; Z79.01 Long term (current) use of anticoagulants; Z95.1 Presence of aortocoronary bypass graft

== ENCOUNTER 2019-01-04 16:19 | Emergency (ER) | payer OTHER | END 2019-01-04 18:30 | disposition home or self-care (01) ==